=== PATIENT | male | born 1995 | race Two or more races ===

== ENCOUNTER 2022-12-11 08:44 | Outpatient (CLI) | payer OTHER | END 2022-12-11 08:47 | disposition home or self-care (01) | LOC: SONOGRAMA 08:44 | PROVIDERS: ATTEND Pathology Anatomic Pathology & Clinical Pathology | DX: D34 Benign neoplasm of thyroid gland (principal); E07.9 Disorder of thyroid, unspecified; E04.1 Nontoxic single thyroid nodule ==